=== PATIENT | female | born 1955 | race Two or more races ===

== ENCOUNTER 2018-09-06 10:27 | Emergency (ER) | payer MEDICARE, MEDICAID ==
[~2018-09-06] VITALS: Ht 162.6 cm; Wt 93.0 kg
[~2018-09-06 10:27] MED LIST: ACETAMINOPHEN-1 EAC1 ORAL; ALBUTEROL SULF8.5 GM INH; ANTIVERT12.5 MG ORAL; DIFLUCAN100 MG PO; DYAZIDE 37.5-21 EACH ORAL; IBUPROFEN800 MG ORAL; KEFLEX500 MG PO; LEVAQUIN750 MG ORAL; LYRICA50 MG ORAL; LYRICA75 M1 ORAL; METFORMIN HCL1000 M1 ORAL; METFORMIN HCL500 M1 ORAL; NEURONTIN400 MG ORAL; OMEPRAZOLE20 M2 ORAL; ONDANSETRON ODT4 MG PO; PEPCID20 MG ORAL; PREDNISONE20 MG ORAL; SILVADENE CREAM50 GM TOP; TRAMADOL HCL50 MG ORAL; TRIAMTERENE-HC1 EAC5 PO; ZITHROMAX250 MG ORAL
--- NOTE | 2018-09-06 10:30 | NUR ---
ED Nurse Note: Pt is in restroom when we try to call in. will try again
--- NOTE | 2018-09-06 10:39 | NUR ---
ED Nurse Note: Pt came in s/p slamming the car door on her rt pointer finger. Rt pointer finger noted to have no nail. Actively bleeding. Gauze and chucks in place. Complainig of 10/10 pain in the rt pointer finger. A + O x4. Ambulatory.
[2018-09-06 10:41] VITALS: BP 135/82
[2018-09-06] MEDS ORDERED: Tetanus/Diptheria/Pertussis Vaccine 0.5ml Syr IM ONE (11:00)
[2018-09-06] MEDS ORDERED: traMADol 50mg tab ORAL ONE (11:00)
--- NOTE | 2018-09-06 11:04 | NUR ---
ED Nurse Note: Xray at the bedside.
[2018-09-06] MEDS ORDERED: Lidocaine 1% Plain 30 ml INJ ONE ×2 (11:45→11:48)
[2018-09-06] MEDS ORDERED: Hydrogen Peroxide 473ml Bottle TOPIC ONE (11:49)
[2018-09-06] MEDS ORDERED: Surgicel 4in x 8in TOPIC ONE (12:30)
[2018-09-06] MEDS ORDERED: TRAMADOL HCL50 MG ORAL (12:49)
[2018-09-06] MEDS ORDERED: AUGMENTIN 875-1 EAC1 ORAL (12:49)
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
--- NOTE | 2018-09-06 13:15 | Diagnostic Imaging Report ---
Indication: Right hand pain Findings: 3 views of the right hand were obtained. Acute tuft injury of the second digit demonstrated with overlying soft tissue irregularity. IMPRESSION: Acute crush injury of the tuft of the second distal phalange
[2018-09-06 14:25] VITALS: BP 125/75
--- NOTE | 2018-09-06 14:25 | NUR ---
ED Nurse Note: Discharge instructions given to pt. Answered all questions. Verbalized understanding. A + O x4. Ambulatory. ID band and Iv site removed. Left with all belongings. Left ER w/ steady gait.
--- NOTE | 2018-09-07 07:51 | Emergency Room Report ---
History of Present Illness General Chief Complaint: Upper Extremity Injury Source: Patient, Medical Record, PMD Present Illness HPI 63-year-old female presents ED for evaluation. Patient states that she slammed a car door on her right index finger this morning. Notes bleeding and states nail came off. Pain is throbbing, 10 out of 10, nonradiating. Denies any other injuries. States she is bleeding a lot because she is taking Xarelto. PMD is Dr. Bazan. Tetanus unknown. No other aggravating relieving factors. Denies any other associated symptoms Allergies: Coded Allergies: DIPHENHYDRAMINE (Verified Allergy, Intermediate, ITCHING, 06/14/12) ACETAMINOPHEN (Verified Allergy, Unknown, 09/06/18) HYDROCODONE (Verified Allergy, Unknown, 09/06/18) PSEUDOEPHEDRINE (Verified Allergy, Unknown, 09/06/18) Patient History Past Medical History: DM, HTN Past Surgical History: none Pertinent Family History: none Social History: Denies: smoking, alcohol use, drug use Now: No Immunizations: UTD Reviewed Nursing Documentation: PMH: Agreed; PSxH: Agreed Nursing Documentation-PMH Past Medical History: No History, Except For Hx Cardiac Problems: Yes Hx Hypertension: Yes Hx Pacemaker: No - RIGHT HIP REPLACEMENT Hx Asthma: No - 4 SPINAL DISC REPLACED Hx COPD: No - NEUROPATHY Hx Diabetes: Yes Hx Cancer: Yes - MELANOMA LEFT LEG Hx Gastrointestinal Problems: Yes Hx Dialysis: No Hx Neurological Problems: No Hx Cerebrovascular Accident: No Hx Seizures: No Review of Systems All Other Systems: negative except mentioned in HPI Physical Exam Vital Signs Date Time Temp Pulse Resp B/P (MAP) Pulse Ox O2 Delivery O2 Flow Rate FiO2 09/06/18 10:30 97.9 84 22 130/78 98 Room Air Sp02 EP Interpretation: reviewed, normal General Appearance: no apparent distress, alert, GCS 15, non-toxic Head: normocephalic Eyes: bilateral eye normal inspection, bilateral eye PERRL ENT: normal ENT inspection Neck: normal inspection Respiratory: normal inspection Cardiovascular #1: normal inspection Gastrointestinal: normal inspection Rectal: deferred Genitourinary: no CVA tenderness Musculoskeletal: other - nailbed exposed R index finger. no nail. active bleeding noted. TTP Neurologic: alert, oriented x3, responsive, motor strength/tone normal, sensory intact, speech normal Psychiatric: judgement/insight normal, memory normal, mood/affect normal, no suicidal/homicidal ideation Skin: normal inspection Lymphatic: normal inspection Procedures Splinting Splinting : Consent: Verbal Pre-Made Type: finger splint Pre-Proc Neuro Vasc Exam: normal Post-Proc Neuro Vasc Exam: normal Patient Tolerated: Well Complications: None Laceration/Wound Repair Laceration/Wound Repair : Consent: Verbal Wound Location: upper extremity - R infdex finger Wound's Depth, Shape: nail-avulsed - bleeding Wound Explored: clean Betadine Prep?: No Anesthesia: 1% Lidocaine Wound Debrided: moderate Wound Repaired With: sutures Suture Size/Type: 6:0, proline Layer Closure?: No Sterile Dressing Applied?: Yes Splint Applied?: Yes Sling Applied?: No Patient Tolerated: Well Complications: None Medical Decision Making Diagnostic Impression: Primary Impression: Crush injury to finger Qualified Codes: S67.10XA - Crushing injury of unspecified finger(s), initial encounter Additional Impression: Laceration of nail bed of finger Qualified Codes: S61.319A - Laceration without foreign body of unspecified finger with damage to nail, initial encounter ER Course Hospital Course 63 yo F presents with bleeding of nailbed R index finger s/p crushed by cardoor Differential diagnoses include: Fracture, dislocation, sprain, contusion Clinical course Patient placed on stretcher. After initial history and physical, I ordered pain medications, TDAP and Xrays of R hand Xray shows crush injury of tuft of R index finger. Wound irrigated. The nail is essentially gone. There is active bleeding from the nail bed. Using pressure, cautery and sutures I was able to control some of the bleeding however there is still persistent bleeding. Dr Al consulted - Surgicel and pressure dressing applied with hemostasis achieved. Dressing and finger splint applied. Discussed with patient. She'll need to followup with Dr Al or Dr Dubon in 2 days for wound check Dr Dubon is aware patient is here and is available to see patient in his office Discussed with Dr Bazan Diagnosis - crush injury to finger, laceration of nail bed Stable and discharged to home with prescription for Tramadol, Augmentin. Followup with PMD/surgery/ortho. Return to ED if symptoms recur or worsen Other X-Ray Diagnostic Results Other X-Ray Diagnostic Results : X-Ray ordered: R hand # of Views/Limited Vs Complete: 3 View Indication: Pain EP Interpretation: Yes Interpretation: no dislocation, other - Acute crush injury of the tuft of the second distal phalange Impression: Other - fx Electronically Signed by: Electronically signed by James Carter MD Last Vital Signs Date Time Temp Pulse Resp B/P (MAP) Pulse Ox O2 Delivery O2 Flow Rate FiO2 09/06/18 14:25 97.5 78 24 125/75 98 Room Air Status: improved Disposition: HOME, SELF-CARE Condition: Stable Scripts Amoxicillin/Potassium Clav 875-125* (AUGMENTIN 875-125 TABLET*) 1 Each Tablet 1 TAB ORAL TWICE A DAY, #14 TAB Prov: James Carter MD 09/06/18 Tramadol Hcl* (ULTRAM*) 50 Mg Tablet 50 MG ORAL Q6H PRN for For Pain for 3 Days, TAB 0 Refills Prov: James Carter MD 09/06/18 Referrals: Raghu Dubon MD, [place] Patient Instructions: Nail Bed Laceration James Carter MD Sep 07, 2018 07:51
== END 2018-09-06 12:00 | disposition home or self-care (01) ==
LOC: EMR 10:55
DX: S67.190A Crushing injury of right index finger, initial encounter (principal); S61.310A Laceration without foreign body of right index finger with damage to nail, initial encounter; W23.0XXA Caught, crushed, jammed, or pinched between moving objects, initial encounter; Y92.810 Car as the place of occurrence of the external cause; Z23 Encounter for immunization; E11.9 Type 2 diabetes mellitus without complications; I10 Essential (primary) hypertension; Z88.6 Allergy status to analgesic agent; Z88.8 Allergy status to other drugs, medicaments and biological substances; Z96.641 Presence of right artificial hip joint; Z85.820 Personal history of malignant melanoma of skin
CPT/HCPCS: 12001; 29130; 73130; 90471; 90715; 99284; J2001

== ENCOUNTER 2018-09-08 12:30 | Emergency (ER) | payer MEDICARE, MEDICAID ==
[~2018-09-08] VITALS: Ht 162.6 cm; Wt 113.4 kg
[~2018-09-08 12:30] MED LIST changes: +AUGMENTIN 875-1 EAC1 ORAL
[2018-09-08 12:38] VITALS: BP 118/75
--- NOTE | 2018-09-08 12:38 | NUR ---
ED Nurse Note: A/Ox4. Ambulated into ER from home due wound check on right 2nd digit. Pt reports that she got suture at [facility] [place] [facility] about 3 days ago and started bleeding. Bleeding controlled by band-aid placed by pt. Seen by Dr. Easley. Pt reports to take Xarelto.
[2018-09-08] MEDS ORDERED: Albuterol/Ipratropium 3ml neb HHN ONE (12:45)
[2018-09-08] MEDS ORDERED: Bacitracin Oint UD TOPIC ONE ×2 (13:36→13:45)
[2018-09-08 13:44] VITALS: BP 118/75
--- NOTE | 2018-09-08 13:45 | NUR ---
ED Nurse Note: A/Ox4. 3 packets of bacitracin and dressing applied on pt's 2nd digit per Dr. Easley's order. Pt is cleared by Dr. Easley. DC instruction and prescription given, pt verbalized understanding. ID wrist band removed. Denies any pain at this time. All belongings taken by pt. Pt ambulated out of ER with steady gait.
--- NOTE | 2018-09-09 06:39 | Emergency Room Report ---
History of Present Illness General Chief Complaint: Wound Recheck/Suture Removal Source: Patient Present Illness HPI Patient is a 63-year-old female who presented for a wound check. Patient had recent surgical repair of a crush injury to finger. Patient was noted to have some pain to the area. She denies any fever. Patient had some difficulty with hemostasis initially. Patient had Surgicel applied to her finger. Patient denied any fever she denies any swelling proximal to injury. She has been taking antibiotics. Allergies: Coded Allergies: DIPHENHYDRAMINE (Verified Allergy, Intermediate, ITCHING, 06/14/12) ACETAMINOPHEN (Verified Allergy, Unknown, 09/06/18) HYDROCODONE (Verified Allergy, Unknown, 09/06/18) PSEUDOEPHEDRINE (Verified Allergy, Unknown, 09/06/18) Patient History Past Medical History: see triage record Now: No Reviewed Nursing Documentation: PMH: Agreed; PSxH: Agreed Nursing Documentation-PMH Hx Cardiac Problems: Yes Hx Hypertension: Yes Hx Pacemaker: No - RIGHT HIP REPLACEMENT Hx Asthma: No - 4 SPINAL DISC REPLACED Hx COPD: No - NEUROPATHY Hx Diabetes: Yes Hx Cancer: Yes - MELANOMA LEFT LEG Hx Gastrointestinal Problems: Yes Hx Dialysis: No Hx Neurological Problems: No Hx Cerebrovascular Accident: No Hx Seizures: No Review of Systems All Other Systems: negative except mentioned in HPI Physical Exam Vital Signs Date Time Temp Pulse Resp B/P (MAP) Pulse Ox O2 Delivery O2 Flow Rate FiO2 09/08/18 12:34 97.5 76 18 118/75 97 Room Air 09/08/18 12:59 21 General Appearance: well appearing, no apparent distress, alert, GCS 15 Head: normocephalic, atraumatic ENT: hearing grossly normal, normal voice Neck: full range of motion, supple Respiratory: no respiratory distress, speaking full sentences, wheezing Gastrointestinal: normal inspection, normal bowel sounds, non tender, soft Musculoskeletal: normal inspection Neurologic: normal inspection, alert, oriented x3, responsive, normal gait Psychiatric: mood/affect normal Skin: other - healing wound with white discoloration to superficial skin, brisk cap refill Medical Decision Making Diagnostic Impression: Primary Impression: Suture check ER Course Patient presented for wound check. Differential diagnosis included was not limited to infected wound, nonhealed wound, neuroma, healed wound. Patient's wound is cleansed. There is not appear to be any evidence of infection at this time. There is some maceration of the skin which is likely due to moisture. Patient was given breathing treatments due to wheezing patient was noted to be a smoker and was advised to discontinue smoking.The patient is advised to follow up with primary care doctor in 2-3 days for recheck and surgical referral as needed. Patient is advised to return if any worsening condition or if any changes in status that are concerning. This report is dictated with [employer] power transmission engineer software which may occasionally lead to discrepancies related to use of this software. Last Vital Signs Date Time Temp Pulse Resp B/P (MAP) Pulse Ox O2 Delivery O2 Flow Rate FiO2 09/08/18 13:44 97.5 76 14 118/75 99 Room Air 21 Status: improved Disposition: HOME, SELF-CARE Condition: Stable Referrals: Wisam Bazan MD (PCP) Patient Instructions: Wound Check Additional Instructions: Follow up with Dr. Bazan for reevaluation and referal to Shay Cowan MD Sep 09, 2018 06:39
== END 2018-09-08 13:46 | disposition home or self-care (01) ==
LOC: EMR 12:58
DX: Z48.01 Encounter for change or removal of surgical wound dressing (principal); R06.2 Wheezing; I10 Essential (primary) hypertension; F17.200 Nicotine dependence, unspecified, uncomplicated; Z96.641 Presence of right artificial hip joint; Z85.820 Personal history of malignant melanoma of skin; Z88.6 Allergy status to analgesic agent; Z88.8 Allergy status to other drugs, medicaments and biological substances
CPT/HCPCS: 94640; 94664; 99283; J7620